=== PATIENT | female | born 1945 | race Caucasian/White ===

== ENCOUNTER → 2024-07-02 10:34 | Outpatient (REF) | payer MEDICARE, OTHER, SELFPAY | LOC: HWRAD 10:34 | PROVIDERS: ATTENDING PHYSICIAN Family Medicine; FAMILY PHYSICIAN Nurse Practitioner Adult Health | DX: E07.9 Disorder of thyroid, unspecified (principal); E27.9 Disorder of adrenal gland, unspecified | CPT/HCPCS: 76536 ==

== ENCOUNTER → 2025-05-30 13:06 | Outpatient (REF) | payer MEDICARE, OTHER, SELFPAY | LOC: RAD 13:06 | PROVIDERS: ATTENDING PHYSICIAN Physical Medicine & Rehabilitation; FAMILY PHYSICIAN Nurse Practitioner Adult Health | DX: M47.817 Spondylosis without myelopathy or radiculopathy, lumbosacral region (principal) | CPT/HCPCS: 72072; 72120 ==

== ENCOUNTER 2025-07-05 11:27 | Emergency (ER) | payer MEDICARE, OTHER, SELFPAY ==
[2025-07-05 11:41] VITALS: BP 100/65
--- NOTE | 2025-07-05 14:55 | ED.MUSCINJ ---
HPI-Injury
General
Chief Complaint: Musculo-Skeletal Complaint
Time Seen by Provider: 07/05/25 13:41
History of Present Illness-Injury
Initial Injury comments:
80-year-old female with prior history of bilateral hip replacement presenting for right hip pain. Patient reports 10 days ago she fell in her garden after pulling on her garden hose. She landed on the right hip with subsequent pain. Notes that
she has been able to bear weight and ambulate, however with pain and discomfort. Denies numbness or tingling. She called her orthopedic doctor who was able to get her into the office next week, however advised to get an x-ray and a CT. Denies any
additional injuries from the fall. Reports some mild shoulder discomfort which is healing. Denies prodromal symptoms from the fall such as lightheaded or dizziness. Denies additional acute medical complaints
Past History
Past History
ED Past Medical History: GERD, Hypothyroidism, Psychiatric (Anxiety) and Other ( Possible adrenal insufficiency, UTi,)
ED Past Surgical History: Appendectomy and Orthopedic
Patient has exhibited threatening behavior?: No
Social History
Tobacco: Non-smoker
Alcohol: None
Drug: None
Personal: Single
Living: alone
Employment: Retired
Family History
Family History: CAD and Other (Uterine cancer)
Phy Exam
Physical Exam
Physical Exam:
General: Well-appearing, no clinical signs of dehydration, nontoxic and in no acute distress
HEENT: protecting airway
Neck: appears supple
CV: Normal heart rate, regular rhythm
Resp: No accessory muscle use, no increased work of breathing, lungs clear to auscultation bilaterally
Abd: No distention
Extremities: No deformities, no swelling. Mild tenderness to the right hip and lateral thigh. No bruising, no swelling or deformity. Range of motion intact and distal sensation intact
Neuro: alert, no focal neurologic deficit
: deferred
Rectal: deferred
Psych: Normal affect
Skin: Intact
Injury Course
Orders/Labs/Results
Orders:
Orders
07/05/25 11:45
CR Hip - RT w/wo Pel 2-3 Vw* Urgent
Reason For Exam: fall
Include a pelvis x-ray?: Yes
07/05/25 14:30
CT Pelvis W/o Iv Contrast Urgent
Comment:
Reason For Exam: R-hip pain, s/p fall, hx replacement
MDM/Problems Addressed
MDM/Problems Addressed:
80-year-old female presenting with right hip pain after a fall 10 days ago. Vital signs arenormal.
On exam, patient is resting comfortably, no acute distress. No significant signs of trauma. Patient denies any head injury or loss of consciousness. No indication for advanced head imaging. On examination of the right lower extremity. Range of
motion is grossly intact. No obvious deformity. No neurovascular compromise. Suspect musculoskeletal component to patient's symptoms. X-ray obtained prior to my assessment, no fracture or malalignment. Patient notes that orthopedics was
requesting a CT scan given her pain with ambulation. Will obtain.
17:00 -CT shows possible subtle fracture to the pubic rami. Feel stable for discharge with outpatient orthopedic follow-up. Copy of results provided. Advised weightbearing as tolerated. Patient has a upcoming appointment with orthopedics.
Return precautions discussed and patient verbalized understanding
*Pulse Oximetry
SaO2: 98
Oxygen Mode of Delivery: Room air
Patient hypoxic: no
*Critical Care Note
Total Time (30-74mins, 75-104mins- exclusive of procedures): Not Applicable
ED Attending Note
-
Portions of this chart may have been created with voice recognition software.� Occasional wrong word or��sound alike� substitutions may have occurred due to the inherent limitations of voice recognition software.
Discharge Plan
Departure
Prescriptions:
No Action
vitamin D3-vitamin K2 (MK4) [K2 Plus D3] 1 EACH tablet
1 - 2 tab PO DAILY Qty: 0
digestive enzymes 1 TAB tablet
2 tab PO TID
ascorbate calcium (vitamin C) [Afsaneh-C] 500 MG tablet
500 mg PO BID
cranberry iyvm-Q-bqyziprz coag [Poberyrpw-Uozavsqoo-Yzxhoee C] 1 EACH tablet
1 ea PO DAILY
zinc [Zinc Chelate] 100 MG tablet
100 mg PO DAILY
clonazepam 0.5 MG tablet
0.25 mg PO DAILYPRN PRN (Reason: anxiety)
Patient Comments:
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
magnesium gluconate [Magonate] 500 MG tablet
500 mg PO DAILY Qty: 0
thyroid (pork) [[place] Thyroid] 60 MG tablet
60 mg PO MOTH
thyroid (pork) [[place] Thyroid] 90 MG tablet
90 mg PO SUTUWEFRSA
L. gasseri-B. bifidum-B longum [[facility]] 1 EACH capsule
1 cap PO BIDPRN PRN (Reason: constipation) Qty: 0
xx3-alx-pzp-cod liver-vit A-D3 [cod liver oil] 1 EACH capsule
3 cap PO DAILY Qty: 0
omega 3,6,9 combination no.7 [[place] DHA] 92 MG tablet,chewable
2 cap PO DAILY Qty: 0
buspirone 5 MG tablet
2.5 mg PO BID
Patient Comments:
04/19/22- as of 04/15 patient should be taking this but she said it makes her weak and takes this when she feels like it
B-complex with vitamin C 1 CAPLET tablet
1 cap PO DAILY
Lactobac 2-Bifido 1-S. therm [High Potency Probiotic] 1 CAP capsule
1 cap PO DAILY
hydroxyzine pamoate [Vistaril] 50 mg capsule
50 mg PO BID PRN (Reason: anxiety) Qty: 20 0RF
cephalexin 500 mg capsule
500 mg PO BID 10 Days Qty: 20 0RF
doxycycline hyclate 100 mg tablet
100 mg PO BID Qty: 14 0RF
prochlorperazine maleate [Compazine] 10 mg tablet
10 mg PO TID PRN (Reason: nausea and vomiting) Qty: 10 0RF
Rx Instructions:
PRN N/V, Headache
Referrals:
Jessica De La Cruz CRNP [Family Provider, General]
Interventions
Interventions:
*Risk Screen - Suicide Last Done: 07/05/25 11:41
*Neglect/Abuse Screening Last Done: 07/05/25 11:41
Discharge Date and Time
Print Language: [id number]
[2025-07-05 16:53] VITALS: BP 122/55
== END 2025-07-05 17:42 | disposition home or self-care (01) ==
LOC: EMR 11:27
PROVIDERS: EMERGENCY PHYSICIAN Student in an Organized Health Care Education/Training Program; FAMILY PHYSICIAN Nurse Practitioner Adult Health
DX: S32.501A Unspecified fracture of right pubis, initial encounter for closed fracture (principal); E03.9 Hypothyroidism, unspecified; K21.9 Gastro-esophageal reflux disease without esophagitis; F41.9 Anxiety disorder, unspecified; Z96.643 Presence of artificial hip joint, bilateral; W01.0XXA Fall on same level from slipping, tripping and stumbling without subsequent striking against object, initial encounter; Y92.007 Garden or yard of unspecified non-institutional (private) residence as the place of occurrence of the external cause
CPT/HCPCS: 99284; 72192; 73502

== ENCOUNTER → 2025-11-06 06:34 | Outpatient (REF) | payer MEDICARE, OTHER, SELFPAY | LOC: RAD 06:34 | PROVIDERS: ATTENDING PHYSICIAN Internal Medicine Gastroenterology; FAMILY PHYSICIAN Nurse Practitioner Adult Health | DX: R63.4 Abnormal weight loss (principal) | CPT/HCPCS: 71270; 74178; Q9967 ==